=== PATIENT | male | born 1965 | race Hispanic/Latino ===

== ENCOUNTER 2018-01-07 10:38 | Outpatient (CLI) | payer MEDICARE ==
--- NOTE | 2018-01-07 18:20 | CT ---
CT LUMBAR SPINE 01/07/[address] of the lumbar spine was performed for evaluation of back pain. Axial slices were acquired, then coronal and sagittal reconstructions were done. Comparison is made with a prior MRI dated 8. The patient has had a prior lumbar fusion at the L3 through L5 levels. This includes pedicle screws. As the result, there is severe metallic artifact at these levels which greatly obscures the disc spac e and discs. The T11 through L2 levels were unremarkable and showed no acute findings. At L2-L3, there was a very mild concentric bulge of the disc but no focal findings were present. There is some facet and ligamen tous hypertrophy here without severe spinal stenosis. At L3-L4, a synthetic disc is in place. The spacer on the right side is placed more posteriorly than the one on the left as on the prior MRI. As a result, it impinges upon the thecal sac on the right si de at this level. The degree of impingement and appearance does not seem substantially different than the MRI. Fine detail is obscured by metallic artifact. At L4-L5, one sees no gross disc bulge or foraminal stenosis. There has been a prior laminectomy here . A single disc spacer is in place. At L5-S1, no acute changes were noted. The visible portions of the SI joints were unremarkable. Incidental findings include there may be a t iny lipoma or adenoma associated with the right adrenal gland, but it is of no current concern. There is a minor amount of streaking around the right kidney which is felt to be of no current significanc e. IMPRESSION: Minimal change since 2007. An MRI would be needed for finer detail due to the streak artifact from th e patient's lumbar fusion. 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 Its appearance is quite similar to the prior study. POS: HOME
== END 2018-01-07 10:39 | disposition home or self-care (01) ==
LOC: BURCT 10:38
PROVIDERS: ATTEND Family Medicine
DX: M51.16 Intervertebral disc disorders with radiculopathy, lumbar region (principal)
CPT/HCPCS: 72131